=== PATIENT | male | born 1975 | race Two or more races ===

== ENCOUNTER 2023-06-20 05:14 | Day surgery (SDC) | payer OTHER ==
[2023-06-20 10:24] VITALS: BMI 28.3
[2023-06-20 11:43] VITALS: TEMP 97.6
[2023-06-20 12:10] VITALS: RESP 14
[2023-06-20 14:38] VITALS: BP 112/73; PULSE 62
== END 2023-06-20 12:33 | disposition home or self-care (01) ==
LOC: JASU-ENDO 05:14
PROVIDERS: ATTEND Student in an Organized Health Care Education/Training Program
PROC: 0DBM8ZX Excision of Descending Colon, Via Natural or Artificial Opening Endoscopic, Diagnostic (ICD-10-PCS; principal; 2023-06-20 10:00)
DX: K64.8 Other hemorrhoids (principal); D12.4 Benign neoplasm of descending colon
CPT/HCPCS: 88305-TC